=== PATIENT | female | born 1950 | race Caucasian/White ===

== ENCOUNTER → 2024-01-05 12:33 | Outpatient (REF) | payer MEDICARE, SELFPAY | LOC: WDC 12:33 | PROVIDERS: ATTENDING PHYSICIAN Advanced Practice Midwife; FAMILY PHYSICIAN Family Medicine | DX: Z12.31 Encounter for screening mammogram for malignant neoplasm of breast (principal); Z78.0 Asymptomatic menopausal state | CPT/HCPCS: 77063; 77067; 77080 ==

== ENCOUNTER → 2024-08-18 10:50 | Outpatient (REF) | payer MEDICARE, SELFPAY | LOC: RAD 10:50 | PROVIDERS: ATTENDING PHYSICIAN Family Medicine; FAMILY PHYSICIAN Specialist | DX: R05.3 Chronic cough (principal); Z01.818 Encounter for other preprocedural examination | CPT/HCPCS: 71046; 93005 ==

== ENCOUNTER → 2025-01-09 12:46 | Outpatient (REF) | payer MEDICARE, SELFPAY | LOC: WDC 12:46 | PROVIDERS: ATTENDING PHYSICIAN Obstetrics & Gynecology Gynecology; FAMILY PHYSICIAN Internal Medicine | DX: Z12.31 Encounter for screening mammogram for malignant neoplasm of breast (principal) | CPT/HCPCS: 77063; 77067 ==

== ENCOUNTER → 2025-08-08 13:48 | Outpatient (REF) | payer MEDICARE, SELFPAY | LOC: RAD 13:48 | PROVIDERS: ATTENDING PHYSICIAN Internal Medicine Critical Care Medicine; FAMILY PHYSICIAN Internal Medicine | DX: J40 Bronchitis, not specified as acute or chronic (principal) | CPT/HCPCS: 71046 ==

== ENCOUNTER → 2025-10-02 10:31 | Outpatient (REF) | payer MEDICARE, SELFPAY | LOC: HWRAD 10:31 | PROVIDERS: ATTENDING PHYSICIAN Internal Medicine Critical Care Medicine; FAMILY PHYSICIAN Internal Medicine; REFERRING PHYSICIAN Internal Medicine Cardiovascular Disease | DX: R91.1 Solitary pulmonary nodule (principal) | CPT/HCPCS: 71250 ==